=== PATIENT | male | born 1950 | race Caucasian/White ===

== ENCOUNTER 2021-11-19 23:59 | Observation (INO) ==
[2021-11-20] MEDS ORDERED: Naloxone 0.4 MG/ML INJ IVP PRN (02:45)
[2021-11-20] MEDS ORDERED: Acetaminophen 325 MG TABLET PO PRN (02:45)
[2021-11-20] MEDS ORDERED: Melatonin 3 MG TABLET PO PRN (02:45)
[2021-11-20] MEDS ORDERED: Ondansetron 4 MG/2 ML VIAL IVP PRN (02:45)
[2021-11-20] MEDS ORDERED: Ipratropium/Albuterol Neb 3 ML IH PRN (02:47)
[2021-11-20] MEDS ORDERED: Perflutren Lipid Microsphere 1.3 ML in 0.9 % Sodium Chloride 8.7 ML IVP PRN (02:47)
[2021-11-20] MEDS ORDERED: Dextrose 4 GM Chewable Tablets PO PRN ×2 (02:50)
[2021-11-20] MEDS ORDERED: MethylPREDNISolone 40 MG/ML VIAL IVP ONE (02:50)
[2021-11-20] MEDS ORDERED: D5% in Water 1,000 ML IVC PRN (02:50)
[2021-11-20] MEDS ORDERED: *HR* Dextrose 50 % in Water (Syg) 50 ML SYRINGE IVP PRN (02:50)
[2021-11-20] MEDS: Azithromycin 500 MG in 0.9 % Sodium Chloride 250 ML IVPB SCH (03:04)
[2021-11-20 03:27] LABS: Basophils % 0.2 %; Hematocrit 43.5 % (37.5-50.1); Hemoglobin 14.3 g/dL (12.9-16.9); Immature Granulocytes % 0.6 % (0-4); Lymphocytes % 7.3 %; Mean Corpuscular HGB Conc 32.9 g/dL (31.6-35.5); Mean Corpuscular Hemoglobin 30.6 pg (28.0-33.3); Mean Corpuscular Volume 93.1 fL (83.0-100.0); Monocytes # 0.8 K/mcL (0.0-1.3); Monocytes % 5.5 %; Platelet Count 403 K/mcL (140-400); Red Blood Count 4.67 M/mcL (4.19-5.50); Red Cell Distribution Width 13.9 % (11.5-14.5); Segmented Neutrophils % 86.4 %; White Blood Count 13.9 K/mcL (4.3-11.1)
[2021-11-20 03:34] LABS: INR 1.2; Prothrombin Time 13.8 Seconds (9.4-12.1)
[2021-11-20 03:46] LABS: BUN/Creatinine Ratio 16 (6-26); Blood Urea Nitrogen 19 mg/dL (8-23); Calcium 9.9 mg/dL (8.6-10.3); Carbon Dioxide 20 mEq/L (23-29); Chloride 103 mEq/L (98-107); Chol/HDL Ratio 2.7 (0-4.9); Cholesterol 155 mg/dL (< 200); Glucose 229 mg/dL (70-105); HDL Cholesterol 57 mg/dL (40-59); LDL Cholesterol,Calculated 79 mg/dL (< 100); Osmolality,Calculated 288 (280-300); Potassium 3.7 mEq/L (3.5-5.1); Sodium 134 mEq/L (136-145); Triglycerides 95 mg/dL (< 150); eGFR For African Americans > 60 (> 60); eGFR For Non-African Americans > 60 (> 60)
[2021-11-20] MEDS: Ipratropium/Albuterol Neb 3 ML IH SCH ×6 (04:13→23:55)
[2021-11-20] MEDS: *HR* Enoxaparin 40 MG/0.4 ML SYRINGE SQ SCH (05:19)
[2021-11-20] MEDS: Budesonide/Formoterol 80/4.5 1 PUFF INH IH SCH ×2 (07:30→20:35)
[2021-11-20] MEDS: Aspirin 325 MG TABLET PO SCH (07:41)
[2021-11-20] MEDS: predniSONE 20 MG TABLET PO SCH (07:41)
[2021-11-20] MEDS: amLODIPine 5 MG TABLET PO SCH (07:41)
[2021-11-20] MEDS: Insulin LISPRO 300 UNITS/3 ML VIAL SUBQ SCH ×4 (07:41→20:20)
[2021-11-20] MEDS ORDERED: allopurinoL 100 MG TABLET PO SCH (09:00)
[2021-11-20] MEDS ORDERED: Topiramate 25 MG TABLET PO SCH (09:00)
[2021-11-20] MEDS: Insulin DETEMIR 100 UNIT/ML X5UNITS SUBQ SCH ×2 (13:42→20:20)
[2021-11-20] MEDS ORDERED: Artificial Tears SOLN 15 ML BOTTLE BOTH EYES SCH (21:00)
[2021-11-21] MEDS: Artificial Tears SOLN 15 ML BOTTLE BOTH EYES SCH ×5 (02:55→21:22)
[2021-11-21] MEDS: Azithromycin 500 MG in 0.9 % Sodium Chloride 250 ML IVPB SCH (02:56)
[2021-11-21 03:37] LABS: Basophils # 0.1 K/mcL (0.0-0.2); Basophils % 0.2 %; Hematocrit 40.4 % (37.5-50.1); Hemoglobin 13.2 g/dL (12.9-16.9); Lymphocytes # 1.3 K/mcL (0.6-4.6); Lymphocytes % 5.3 %; Mean Corpuscular HGB Conc 32.7 g/dL (31.6-35.5); Mean Corpuscular Hemoglobin 30.1 pg (28.0-33.3); Mean Corpuscular Volume 92.2 fL (83.0-100.0); Mean Platelet Volume 9.2 fL (9.4-12.4); Monocytes # 2.7 K/mcL (0.0-1.3); Monocytes % 10.9 %; Neutrophils # 20.2 K/mcL (1.6-8.9); Platelet Count 434 K/mcL (140-400); Red Blood Count 4.38 M/mcL (4.19-5.50); Red Cell Distribution Width 13.9 % (11.5-14.5); Segmented Neutrophils % 82.6 %
[2021-11-21 03:38] LABS: White Blood Count 24.5 K/mcL (4.3-11.1)
[2021-11-21 03:57] LABS: BUN/Creatinine Ratio 29 (6-26); Blood Urea Nitrogen 32 mg/dL (8-23); Calcium 9.8 mg/dL (8.6-10.3); Carbon Dioxide 20 mEq/L (23-29); Chloride 104 mEq/L (98-107); Glucose 180 mg/dL (70-105); Osmolality,Calculated 289 (280-300); Potassium 4.1 mEq/L (3.5-5.1); Sodium 134 mEq/L (136-145); eGFR For African Americans > 60 (> 60); eGFR For Non-African Americans > 60 (> 60)
[2021-11-21] MEDS: Ipratropium/Albuterol Neb 3 ML IH SCH ×6 (04:48→23:31)
[2021-11-21] MEDS: *HR* Enoxaparin 40 MG/0.4 ML SYRINGE SQ SCH (05:18)
[2021-11-21] MEDS: Budesonide/Formoterol 80/4.5 1 PUFF INH IH SCH ×2 (07:51→20:18)
[2021-11-21] MEDS: predniSONE 20 MG TABLET PO SCH (08:13)
[2021-11-21] MEDS: Aspirin 325 MG TABLET PO SCH (08:13)
[2021-11-21] MEDS: amLODIPine 5 MG TABLET PO SCH (08:13)
[2021-11-21] MEDS: Insulin LISPRO 300 UNITS/3 ML VIAL SUBQ SCH ×4 (08:15→21:19)
[2021-11-21 11:10] LABS: Estimated Average Glucose 126 mg/dl
[2021-11-21] MEDS: Insulin DETEMIR 100 UNIT/ML X5UNITS SUBQ SCH (21:20)
[2021-11-22] MEDS: Azithromycin 500 MG in 0.9 % Sodium Chloride 250 ML IVPB SCH (02:42)
[2021-11-22] MEDS: Ipratropium/Albuterol Neb 3 ML IH SCH ×4 (03:32→15:56)
[2021-11-22] MEDS: *HR* Enoxaparin 40 MG/0.4 ML SYRINGE SQ SCH (05:17)
[2021-11-22 05:45] LABS: Basophils # 0.1 K/mcL (0.0-0.2); Basophils % 0.5 %; Hematocrit 39.2 % (37.5-50.1); Hemoglobin 12.8 g/dL (12.9-16.9); Immature Granulocytes % 2.6 % (0-4); Lymphocytes # 2.7 K/mcL (0.6-4.6); Lymphocytes % 11.1 %; Mean Corpuscular HGB Conc 32.7 g/dL (31.6-35.5); Mean Corpuscular Hemoglobin 30.5 pg (28.0-33.3); Mean Corpuscular Volume 93.3 fL (83.0-100.0); Mean Platelet Volume 9.1 fL (9.4-12.4); Monocytes # 2.2 K/mcL (0.0-1.3); Monocytes % 9.2 %; Neutrophils # 18.6 K/mcL (1.6-8.9); Platelet Count 441 K/mcL (140-400); Red Cell Distribution Width 14.3 % (11.5-14.5); Segmented Neutrophils % 76.6 %; White Blood Count 24.3 K/mcL (4.3-11.1)
[2021-11-22] MEDS: predniSONE 20 MG TABLET PO SCH (07:18)
[2021-11-22] MEDS: amLODIPine 5 MG TABLET PO SCH (07:18)
[2021-11-22] MEDS: Artificial Tears SOLN 15 ML BOTTLE BOTH EYES SCH ×2 (07:18→11:36)
[2021-11-22] MEDS: Aspirin 325 MG TABLET PO SCH (07:18)
[2021-11-22] MEDS: Insulin LISPRO 300 UNITS/3 ML VIAL SUBQ SCH ×2 (07:19→11:35)
[2021-11-22] MEDS: Budesonide/Formoterol 80/4.5 1 PUFF INH IH SCH (07:24)
[2021-11-22 07:38] LABS: BUN/Creatinine Ratio 32 (6-26); Blood Urea Nitrogen 34 mg/dL (8-23); Calcium 9.4 mg/dL (8.6-10.3); Carbon Dioxide 23 mEq/L (23-29); Chloride 106 mEq/L (98-107); Glucose 117 mg/dL (70-105); Osmolality,Calculated 293 (280-300); Sodium 137 mEq/L (136-145); eGFR For African Americans > 60 (> 60); eGFR For Non-African Americans > 60 (> 60)
[2021-11-22 14:31] VITALS: BP 115/67; PULSE 63; TEMP 97.6; O2SAT 95
== END 2021-11-22 16:02 | disposition home or self-care (01) ==
LOC: 3BNU → SUATTDRO 11-20 01:55
PROVIDERS: ADMIT Family Medicine; ATTEND Registered Nurse